=== PATIENT | female | born 1935 | race Caucasian/White ===

== ENCOUNTER 2016-08-10 07:33 | Inpatient (IN) | payer MEDICARE ==
[2016-08-10] MEDS ORDERED: LORAZEPAM 2 MG/ML VIAL IV ONE (08:00)
--- NOTE | 2016-08-10 08:08 | EDPRACDOC ---
- General Information Chief Complaint: Altered Mental Status Stated Complaint: EVALUATION Time Seen by Provider: 08/10/16 08:00 Home Medications: Home Medications Aspirin 81 mg PO DAILY 02/23/16 Atenolol [Tenormin] 50 mg PO BID 02/23/16 Atorvastatin Calcium [Lipitor] 20 mg PO HS 02/23/16 CYANOCOBALAMIN (Vitamin B-12) [Vitamin B-12 (cyanocobalamin)] 1,000 mcg IM .MONTHLY 02/23/16 Clopidogrel Bisulfate [Plavix] 75 mg PO DAILY 02/23/16 Folic Acid 1 mg PO DAILY 02/23/16 Furosemide [Lasix] 40 mg PO BID 02/23/16 Isosorbide Mononitrate [Isosorbide Mononitrate ER] 60 mg PO DAILY 02/23/16 Nitroglycerin [Nitroquick] 0.4 mg SL . DIRECTED PRN 02/23/16 Quinapril HCl 40 mg PO BID 02/23/16 Gabapentin [Neurontin] 100 mg PO QHS 06/24/16 Lactobacillus Combo No.11 [Probiotic] 1 cap PO DAILY 06/24/16 Pantoprazole Sodium [Protonix] 20 mg PO DAILY 06/24/16 Psyllium Husk [Metamucil] 0.52 gm PO BID 06/24/16 Quetiapine Fumarate [Seroquel] 25 mg PO HS 06/24/16 Allergies/Adverse Reactions: Allergies Allergy/AdvReac Type Severity Reaction Status Date / Time codeine [Codeine] Allergy Severe Headache Verified 02/23/16 23:18 Penicillins Allergy Intermediate Rash-Genera Verified 02/23/16 23:18 lized - History of Present Illness Onset: WEEKS Exact Onset of Symptoms: Unknown Date Symptoms Started: 07/20/16 HPI: PATIENT SENT FROM HOME WITH ALTERED MENTAL STATUS. HX OF METABOLIC ENCEPHALOPATHY, CVA, AND DEMENTIA. PATIENT STATES SHE BELIEVES HER IS TRYING TO KILL HER ANIMALS AND CHILDREN. Symptoms began: Gradually Duration: Since Onset Symptoms Currently: Reports: Still Present Altered Quality: Reports: Change in Behavior, Confusion Altered Severity: Reports: Unable to care for self Recent Symptoms of: Reports: None Relevant History: Reports: CVA, Dementia Prehospital: Reports: EMT ED Past Medical History - History Reviewed Yes Nurses notes reviewed and agree except as marked Travel Outside of [place] in the Last 3 Months?: No - Patient Medical History Neurological History: Reports: Cerebrovascular Accident, Dementia Cardiac History: Reports: Coronary Artery Disease, Hypertension, Heart Attack, Cardiac Catheterization, CABG, Hypercholesterolemia Respiratory History: Denies: Asthma, COPD, Cough, Emphysema, Pulmonary Embolism GI/ History: Reports: Renal Failure (ACUTE 09/28/14), Urinary Tract Infection ( 09/28/14), Gastroesophageal Reflux, Ulcer Musculoskeletal History: Reports: Arthritis, Osteoarthritis Psychological History: Reports: Depression, Anxiety. Denies: Bipolar Disorder, Substance Use Disorder Systemic History: Reports: Anemia (Takes B12 injections). Denies: Cancer, Diabetes, Hypothyroidism Surgical History: Reports: CABG, Cardiac Catheterization, Tonsillectomy/ Adnoidectomy, Other (Left knee replacement, PTCA stent to LAD, Exploratory laporatomy) - Family Medical History Reports: Hypertension (Mother and Father), Stroke (Mother: of CVA at 83yo.) , Cardiac Disorders (Mother). Denies: Diabetes, Cancer - Social Medical History Smoking Status: Never smoker Social History: Denies: Substance Use Disorder Lives With: Family Lives In: Home EDM Review of Systems - Review of Systems ROS Negative Except as Marked: Yes All systems reviewed and were negative except as marked Constitutional: Fatigue. negative: Chills, Fever, Loss of Appetite, Weakness Eyes: No Symptoms Reported. negative: Redness, Blurred Vision, Double Vision, Discharge, Pain, Light Sensitive, Photophobia Ears: No Symptoms Reported. negative: Pain, Hearing Loss, Drainage, Ear Pulling Throat: No Symptoms Reported. negative: Pain, Swelling Nose: No Symptoms Reported. negative: Congestion, Bleeding, Discharge, Injection, Swelling, Deformity, Ecchymosis, Tender, Abrasion, Laceration Mouth: No Symptoms Reported. negative: Pain, Drooling Respiratory: No Symptoms Reported. negative: Cough, Brassy Cough, Barky Cough, Shortness of Breath, Wheezing, Hemoptysis Cardiovascular: No Symptoms Reported. negative: Chest Pain, Palpitations, Syncope, Edema, Orthopnea, PND, Skin Mottling, Cyanosis Gastrointestinal: No Symptoms Reported. negative: Pain, Constipation, Nausea, Vomiting, Diarrhea, Melena, Formula Intolerance Genitourinary: No Symptoms Reported. negative: Dysuria, Hematuria, Frequency, Discharge, Bleeding, Testicular Pain, Neurological: No Symptoms Reported. negative: Headache, Dizziness, Seizure, Numbness, Weakness, Speech Difficulty, Gait Difficulty Musculoskeletal: No Symptoms Reported. negative: Neck, Chestwall, Ribs, Back, Shoulder, Arm, Elbow, Forearm, Wrist, Hand, Pelvis, Hip, Femur, Knee, Leg, Ankle , Foot Integumentary: No Symptoms Reported. negative: Itching, Rash, Bruising, Wound Allergic/Immunologic: No Symptoms Reported. negative: Hives, Itching Hematologic: No Symptoms Reported. negative: Lymphadenopathy, Easy Bruising, Easy Bleeding Endocrine: No Symptoms Reported. negative: Weight Gain, Weight Loss Psychiatric: No Symptoms Reported. negative: Anxiety, Depression, Hallucinations, Insomnia, Suicidal - Physical Exam Constitutional: Alert (Awake), Confused Oriented to: Person, Place Last recorded Vital Signs: Oxygen Pulse Oxygen Saturation O2 Device Oxygen Flow Rate Fraction of Inspired Oxygen ( FIO2) - HEENT Head: Normal ( normocephalic) Eye Exam: Normal (PERRL, EOMI, Sclera white) Oropharynx: Normal (Pharynx:Moist without exudate,Gums-no swelling) Tympanic Membrane: Normal ENT EAC: Normal TMJ: Normal Nose: No Symptoms Reported (septum midline) Neck: Normal (FROM, trachea at midline) - Respiratory/Cardiovascular Respiratory: Normal - CTA (BBS clear to auscultation without adventitious sounds ) Cardiovascular: Normal (RRR without murmur, gallop or rub) - GI Auscultation: Normal (NABS) Palpation: Normal (Soft,No rebound or guarding, non distended) Tenderness: Non tender Landry's Sign: Negative - Bladder: Normal - Musculoskeletal Back: Normal (Non-Tender) Extremities: Normal (Normal tone, Pulses 2+ No cyanosis or edema, FROM) - Integumentary Skin: Normal, Warm, Dry Lymphatics: Normal (no adenopathy) - Neurologic Memory Impaired: Normal Motor Function: Normal (Normal tone, Pulses 2+ No cyanosis or edema, FROM) Cranial Nerve: Normal (CN II-X11 intact sensation, strength 5/5) Cerebellar: Normal Mood Description: Anxious Thought: Flight of Ideas Perception: Normal - Results 08/10/16 08:25 08/10/16 08:25 - EKG EKG #1 EKG Time: 08:39 -: Yes EKG interpreted by me Rate: bpm: 50 [place]: Normal Rhythm: NSR Block: IVCD Hypertrophy: LVH ST: Normal - Departure Yes I personally saw and evaluated the patient. Disposition: Admit IP To This Hospital Condition: Fair Final Diagnosis: Dehydration Altered mental status Qualifiers: Altered mental status type: delirium Qualified Code(s): R41.0 - Disorientation , unspecified UTI (urinary tract infection) Qualifiers: Urinary tract infection type: acute cystitis Hematuria presence: without hematuria Qualified Code(s): N30.00 - Acute cystitis without hematuria Instructions: Urinary Tract Infection in Women (ED), Dysuria Education/Counseling Given To: Patient Education/Counseling Given Regarding: Diagnosis, Treatment, Prognosis, Follow Up Decision to Admit Time: 09:30 Decision to admit date: 08/10/16 Decision to admit: from ED - Physician Consulted Hospitalist Time Called: 09:30 Provider Called: Babar Meyers Time Library Serials Assistant Returned Call: 09:30
[2016-08-10 08:48] LABS: BLOOD UREA NITROGEN 27 MG/DL (7-17); CALCIUM 8.7 MG/DL (8.4-10.2); CALCULATED OSMOLALITY 280 MOs/Kg (270-290); CHLORIDE 107 mEq/L (98-107); GLUCOSE 99 MG/DL (70-99); SODIUM LEVEL 143 mEq/L (137-146); TOTAL PROTEIN 7.1 G/DL (6.3-8.2)
[2016-08-10 08:52] LABS: AUTOMATED BASOPHIL 1.2 % (0-2); AUTOMATED EOSINOPHIL 4.5 % (0-5); AUTOMATED LYMPH 32.9 % (17-44); AUTOMATED NEUTROPHIL 51.4 % (45-76); MPV 11.3 fL (7.4-10.4)
[2016-08-10 09:02] LABS: PARTIAL THROMB. TIME 23.8 SEC (22-35); PT-INR 1.1
--- NOTE | 2016-08-10 09:10 | DIRPT ---
CLINICAL DATA: 81-year-old female with shortness breath and altered mental status. EXAM: PORTABLE CHEST 1 VIEW COMPARISON: 06/24/2016 and prior exams FINDINGS: Cardiomegaly and CABG changes identified. There is no evidence of focal airspace disease, pulmonary edema, suspicious pulmonary nodule/mass, pleural effusion, or pneumothorax. No acute bony abnormalities are identified. IMPRESSION: Cardiomegaly without evidence of acute cardiopulmonary disease. Electronically Signed By: Angel Jett M.D. On: 08/10/2016 09:08
--- NOTE | 2016-08-10 09:16 | DIRPT ---
CLINICAL DATA: 81-year-old female with acute altered mental status. EXAM: CT HEAD WITHOUT CONTRAST TECHNIQUE: Contiguous axial images were obtained from the base of the skull through the vertex without intravenous contrast. COMPARISON: 02/23/2016 and prior exams. FINDINGS: Atrophy, chronic small-vessel white matter ischemic changes and remote right [id number] infarct again noted. No acute intracranial abnormalities are identified, including mass lesion or mass effect, hydrocephalus, extra-axial fluid collection, midline shift, hemorrhage, or acute infarction. The visualized bony calvarium is unremarkable. IMPRESSION: No evidence of acute intracranial abnormality. Atrophy, chronic small-vessel white mentioned ischemic changes remote right cerebral infarct. Electronically Signed By: Angel Jett M.D. On: 08/10/2016 09:13
[2016-08-10 09:18] LABS: ALL NEG? YES; MDMA* NEG (NEGATIVE); METHAMPHETAMINES NEG (NEGATIVE); OXYCODONE NEG (NEGATIVE)
[2016-08-10 09:19] LABS: LEUKOCYTES/URINE 2+ (NEGATIVE); NITRITE/URINE NEG (NEGATIVE); URINE OCCULT BLOOD 1+ (NEG/TRACE); WBC/URINE TNTC (0-5)
[2016-08-10] MEDS ORDERED: Levofloxacin 750 mg/150 ml D5W 750 MG/150 ML RTU IV ONE (09:29)
[2016-08-10] MEDS ORDERED: NS 1,000 ML IV ONE (09:29)
[2016-08-10 09:30] LABS: ETOH-MGDL < 10 mg/dL
[2016-08-10] MEDS ORDERED: MAGNESIUM HYDROXIDE 30 ML BOTTLE PO PRN (11:05)
[2016-08-10] MEDS ORDERED: ACETAMINOPHEN 325 MG/TAB TABLET PO PRN (11:05)
[2016-08-10] MEDS ORDERED: Docusate Sodium 100 MG CAP PO PRN (11:05)
[2016-08-10] MEDS ORDERED: ONDANSETRON HCL 4 MG/2 ML VIAL IV PRN (11:05)
--- NOTE | 2016-08-10 11:05 | HISTPHYS ---
- Chief Complaint altered mental status - History of Present Illness Ms. Pimentel is an 81-year-old white female with a history of metabolic encephalopathy, stroke and dementia who was sent to the emergency room with worsening mental status and paranoid delusions. She has apparently been stating that she thinks her is trying to killer. Per the emergency rooms discussion with family she apparently gets this way when she gets urinary tract infections. And unfortunately she does have a UTI. She also appears moderately dehydrated and will be admitted to the hospital for further evaluation and management of metabolic encephalopathy, urinary tract infection, and dehydration. She is unable to provide any other history at this time. - Medical History Cardiac History: Reports: Coronary Artery Disease, Hypertension, Heart Attack, Cardiac Catheterization, CABG, Hypercholesterolemia Respiratory History: Denies: Asthma, COPD, Cough, Emphysema, Pulmonary Embolism GI/ History: Reports: Renal Failure (ACUTE 09/28/14), Urinary Tract Infection ( 09/28/14), Gastroesophageal Reflux, Ulcer Musculoskeletal History: Reports: Arthritis, Osteoarthritis Systemic History: Reports: Anemia (Takes B12 injections). Denies: Cancer, Diabetes, Hypothyroidism Neurological History: Reports: Cerebrovascular Accident, Dementia Psychological History: Reports: Depression, Anxiety. Denies: Bipolar Disorder, Substance Use Disorder - Surgical History Reports: CABG, Cardiac Catheterization, Tonsillectomy/Adnoidectomy, Other (Left knee replacement, PTCA stent to LAD, Exploratory laporatomy) - Medictions/Allergies Allergies codeine [Codeine] Allergy (Severe, Verified 08/10/16 10:27) Headache SEVERE HEADACHE Penicillins Allergy (Intermediate, Verified 08/10/16 10:27) Rash-Generalized Home Medications Aspirin 81 mg PO DAILY 02/23/16 Atenolol [Tenormin] 50 mg PO BID 02/23/16 Atorvastatin Calcium [Lipitor] 20 mg PO HS 02/23/16 CYANOCOBALAMIN (Vitamin B-12) [Vitamin B-12 (cyanocobalamin)] 1,000 mcg IM .MONTHLY 02/23/16 Clopidogrel Bisulfate [Plavix] 75 mg PO DAILY 02/23/16 Folic Acid 1 mg PO DAILY 02/23/16 Furosemide [Lasix] 40 mg PO BID 02/23/16 Isosorbide Mononitrate [Isosorbide Mononitrate ER] 60 mg PO DAILY 02/23/16 Nitroglycerin [Nitroquick] 0.4 mg SL . DIRECTED PRN 02/23/16 Quinapril HCl 40 mg PO BID 02/23/16 Gabapentin [Neurontin] 100 mg PO QHS 06/24/16 Lactobacillus Combo No.11 [Probiotic] 1 cap PO DAILY 06/24/16 Pantoprazole Sodium [Protonix] 20 mg PO DAILY 06/24/16 Psyllium Husk [Metamucil] 0.52 gm PO BID 06/24/16 Quetiapine Fumarate [Seroquel] 25 mg PO HS 06/24/16 - Family History Reports: Hypertension (Mother and Father), Stroke (Mother: of CVA at 83yo.) , Cardiac Disorders (Mother). Denies: Diabetes, Cancer - Social History Lives: with Spouse Smoking Status: Never smoker Social History: Denies: Alcohol Use, Substance Use Disorder - Review of Systems Yes Review of systems cannot be obtained due to the patient's medical condition (Dementia with worsening mental status) Constitutional: Fatigue. negative: Chills, Fever, Loss of Appetite, Weakness - Physical Exam Constitutional: Alert (Awake), Confused, Well nourished, Well appearing Oriented to: Person Exam: Last Vital Signs Temp 97.6 F 08/10/16 07:33 Pulse 52 L 08/10/16 10:50 Resp 18 08/10/16 10:30 BP 146/72 08/10/16 10:50 Pulse Ox 99 08/10/16 10:50 Intake & Output 08/09/16 08/10/16 08/10/16 23:59 07:59 15:59 Output Total 50 Balance -50 Patient's weight 68.765 kg - HEENT Head: Normal ( normocephalic) Eye: Normal (PERRL, EOMI, Sclera white) Oropharynx: Normal (Pharynx:Moist without exudate,Gums-no swelling) Tympanic Membrane: Normal ENT EAC: Normal TMJ: Normal Nose: No Symptoms Reported (septum midline) - Respiratory/Cardiovascular Respiratory: Normal - CTA (BBS clear to auscultation without adventitious sounds ) Cardiovascular: Normal - GI Auscultation: Normal (NABS) Palpation: Normal (Soft,No rebound or guarding, non distended) Tenderness: Non tender - Musculoskeletal Back: Normal (Non-Tender). negative: Abrasion Extremities: Normal (Normal tone, Pulses 2+ No cyanosis or edema, FROM), Femoral Pulse, Pedal Pulse. negative: Calf Tenderness - Integumentary Skin: Normal, Warm, Dry Lymphatics: Normal (no adenopathy). negative: Adenopathy - Neurologic Memory Impaired: Short-term, Long-term Motor Function: Normal Cranial Nerve: Normal Cerebellar: Normal Mood Description: Anxious Thought: Flight of Ideas Perception: Normal - Focused CV Perfusion Exam Vital Signs: Last Vital Signs Temp 97.6 F 08/10/16 07:33 Pulse 52 L 08/10/16 10:50 Resp 18 08/10/16 10:30 BP 146/72 08/10/16 10:50 Pulse Ox 99 08/10/16 10:50 - Lab Results Laboratory Results - last 24 hr 08/10/16 08/10/16 08/10/16 08:25 08:25 08:25 WBC 4.7 RBC 3.26 L Hgb 10.8 L Hct 32.2 L MCV 99 MCH 33.0 H MCHC 33.5 RDW 15.7 H Plt Count 119 L MPV 11.3 H Neut % (Auto) 51.4 Lymph % (Auto) 32.9 [place] % (Auto) 10.0 Eos % (Auto) 4.5 Baso % (Auto) 1.2 Absolute Neuts (auto) 2.40 Absolute Lymphs (auto) 1.50 PT 10.9 INR 1.1 APTT 23.8 Sodium 143 Potassium 3.3 L Chloride 107 Carbon Dioxide 26 Anion Gap 13 BUN 27 H Creatinine 1.10 H Estimated GFR (MDRD) 48 L Glucose 99 Calculated Osmolality 280 Calcium 8.7 Total Bilirubin 0.7 AST 28 ALT 31 Alkaline Phosphatase 105 Troponin I < 0.01 Total Protein 7.1 Albumin 4.6 Urine Color Urine Clarity Urine pH Ur Specific [place] Urine Protein Urine Glucose (UA) Urine Ketones Urine Occult Blood Urine Nitrite Urine Bilirubin Urine Urobilinogen Ur Leukocyte Esterase Urine RBC Urine WBC Urine WBC Clumps Ur Epithelial Cells Urine Bacteria Urine Opiates Screen Ur Oxycodone Screen Urine Methadone Screen Ur Barbiturates Screen Ur Tricyclics Screen Ur Phencyclidine Scrn Ur Amphetamines Screen U Methamphetamines Scrn Urine MDMA Screen U Benzodiazepines Scrn Urine Cocaine Screen Ur THC Screen Plasma/Serum Ethyl Alc 08/10/16 08/10/16 08/10/16 08:25 09:05 09:05 WBC RBC Hgb Hct MCV MCH MCHC RDW Plt Count MPV Neut % (Auto) Lymph % (Auto) [place] % (Auto) Eos % (Auto) Baso % (Auto) Absolute Neuts (auto) Absolute Lymphs (auto) PT INR APTT Sodium Potassium Chloride Carbon Dioxide Anion Gap BUN Creatinine Estimated GFR (MDRD) Glucose Calculated Osmolality Calcium Total Bilirubin AST ALT Alkaline Phosphatase Troponin I Total Protein Albumin Urine Color Yellow Urine Clarity Cldy Urine pH 6.0 Ur Specific [place] 1.010 Urine Protein 1+ H Urine Glucose (UA) Neg Urine Ketones Neg Urine Occult Blood 1+ H Urine Nitrite Neg Urine Bilirubin Neg Urine Urobilinogen <2.0 Ur Leukocyte Esterase 2+ H Urine RBC 2-5 Urine WBC Tntc H Urine WBC Clumps Present H Ur Epithelial Cells 3+ Urine Bacteria 3+ H Urine Opiates Screen Neg Ur Oxycodone Screen Neg Urine Methadone Screen Neg Ur Barbiturates Screen Neg Ur Tricyclics Screen Neg Ur Phencyclidine Scrn Neg Ur Amphetamines Screen Neg U Methamphetamines Scrn Neg Urine MDMA Screen Neg U Benzodiazepines Scrn Neg Urine Cocaine Screen Neg Ur THC Screen Neg Plasma/Serum Ethyl Alc - Assessment (1) Metabolic encephalopathy G93.41 - METABOLIC ENCEPHALOPATHY Acute Present on Admission: Yes Baseline cognitive dysfunction. However this is acutely exacerbated likely by dehydration and urinary tract infection. Will admit to the hospital. IV fluids and IV antibiotics. Will use Rocephin based on cultures from last hospitalization in early June. (2) UTI (urinary tract infection) N39.0 - URINARY TRACT INFECTION, SITE NOT SPECIFIED Acute Present on Admission: Yes Qualifiers: Urinary tract infection type: acute cystitis Hematuria presence: without hematuria Qualified Code(s): N30.00 - Acute cystitis without hematuria Relatively stable appearing but very confused and disoriented. Clearly has UTI and worsening cognitive function. Will use IV Rocephin based on previous cultures in June. Adjust therapy pending new culture results (3) Dehydration E86.0 - DEHYDRATION Acute Present on Admission: Yes IV fluids and monitor. (4) Hyperlipidemia E78.5 - HYPERLIPIDEMIA, UNSPECIFIED Chronic Present on Admission: Yes Qualifiers: Hyperlipidemia type: pure hypercholesterolemia Qualified Code(s): E78.00 - Pure hypercholesterolemia, unspecified; E78.0 - Pure hypercholesterolemia Continue current medications (5) Hypertension I10 - ESSENTIAL (PRIMARY) HYPERTENSION Chronic Present on Admission: Yes Qualifiers: Hypertension type: essential hypertension Qualified Code(s): I10 - Essential (primary) hypertension Continue home medications and monitor. (6) Stasis dermatitis of both legs I83.11 - VARICOSE VEINS OF RIGHT LOWER EXTREMITY WITH INFLAMMATION; I83.12 - VARICOSE VEINS OF LEFT LOWER EXTREMITY WITH INFLAMMATION Acute Present on Admission: Yes Supportive care. Likely needs compression stockings Case Care Discussed with: Patient, Nursing Staff, Resource Management
[2016-08-10] MEDS ORDERED: CYANOCOBALAMIN 1000 MCG/ML VIAL IM SCH (12:00)
[2016-08-10] MEDS: PROBIOTIC BLEND TAB PO SCH (12:18)
[2016-08-10] MEDS: CEFTRIAXONE 1 GM in D5W 100 ML IV SCH (12:18)
[2016-08-10] MEDS: NS/KCl 20 mEq 1,000 ML IV SCH ×3 (12:18→21:44)
[2016-08-10] MEDS ORDERED: Vaccine Screening Complete SCH (13:00)
[2016-08-10] MEDS: ENOXAPARIN 40 MG/0.4 ML PFS SQ SCH (18:53)
[2016-08-10] MEDS ORDERED: PSYLLIUM HUSK 0.52 GM PO SCH (21:00)
[2016-08-10] MEDS: ATORVASTATIN 20 MG TAB PO SCH (22:30)
[2016-08-10] MEDS: GABAPENTIN 100 MG CAP PO SCH (22:30)
[2016-08-10] MEDS: QUETIAPINE FUMARATE 25 MG TAB PO SCH (22:30)
[2016-08-10] MEDS: PSYLLIUM 1 PACK PO SCH (22:30)
[2016-08-11] MEDS: ATENOLOL 50 MG TAB PO SCH ×3 (01:15→21:24)
[2016-08-11] MEDS: NS/KCl 20 mEq 1,000 ML IV SCH ×4 (02:45→21:26)
[2016-08-11] MEDS: PANTOPRAZOLE 40 MG TAB PO SCH (05:16)
[2016-08-11] MEDS: ISOSORBIDE MONONITRATE 60 MG TAB PO SCH (05:16)
[2016-08-11 05:30] LABS: AUTOMATED EOSINOPHIL 3.9 % (0-5); AUTOMATED LYMPH 31.7 % (17-44); AUTOMATED MONOCYTE 11.8 % (3-10); AUTOMATED NEUTROPHIL 51.6 % (45-76); MPV 11.9 fL (7.4-10.4)
[2016-08-11 05:38] LABS: BLOOD UREA NITROGEN 24 MG/DL (7-17); CHLORIDE 111 mEq/L (98-107); GLUCOSE 103 MG/DL (70-99); SODIUM LEVEL 144 mEq/L (137-146)
[2016-08-11 05:39] LABS: CALCIUM 8.2 MG/DL (8.4-10.2); CALCULATED OSMOLALITY 281 MOs/Kg (270-290)
[2016-08-11] MEDS: PSYLLIUM 1 PACK PO SCH ×2 (07:53→21:24)
[2016-08-11] MEDS: CLOPIDOGREL 75 MG TAB PO SCH (07:55)
[2016-08-11] MEDS: ASPIRIN (CHEWABLE) 81 MG TAB PO SCH (07:55)
[2016-08-11] MEDS ORDERED: PANTOPRAZOLE SODIUM 20 MG PO SCH (09:00)
[2016-08-11] MEDS ORDERED: [UNRECOGNIZED DRUG - OTHER] PO SCH (09:00)
[2016-08-11] MEDS: FOLIC ACID 1 MG TAB PO SCH (11:40)
[2016-08-11] MEDS: PROBIOTIC BLEND TAB PO SCH (11:40)
[2016-08-11] MEDS: CEFTRIAXONE 1 GM in D5W 100 ML IV SCH (11:40)
--- NOTE | 2016-08-11 13:48 | GENMEDPROG ---
Chief Complaint: Still very confused. Much more alert and interactive however. Denies pain. Notes Reviewed: Yes Events from last night noted and discussed with Clinical Staff Current Medication List: Reviewed Currently: Denies: Cough, Wheezing, CUMMINGS, SOB, Nausea and Vomiting, Abdominal Pain, Chest Pain DVT Prophylaxis: Yes - Physical Examination Vital Signs and I&O: Last Vital Signs Temp 98.4 F 08/11/16 11:29 Pulse 58 L 08/11/16 12:00 Resp 18 08/11/16 11:29 BP 133/61 08/11/16 11:29 Pulse Ox 97 08/11/16 11:29 Oxygen Pulse Oxygen Saturation 97 O2 Device Room Air Oxygen Flow Rate Fraction of Inspired Oxygen ( FIO2) Intake & Output 08/08/16 08/09/16 08/10/16 08/11/16 23:59 23:59 23:59 23:59 Intake Total 1950 1855 Output Total 250 Balance 1950 1605 Patient's weight 68.583 kg 69.853 kg General: Alert, Cooperative, No acute distress, Well appearing, Well nourished. negative: Oriented x3 HEENT: Normal, PERRLA, EOMI, Anicteric Sclera Neck: Non-tender, Full range of motion, Normal Trachea alignment, Normal inspection. negative: JVD Lymphatics: Normal (no adenopathy). negative: Adenopathy Respiratory: Normal - CTA (BBS clear to auscultation without adventitious sounds ) Cardiovascular: Regular rate and rhythm, No Gallops,Rubs/Murmurs GI: Normal bowel sounds, Soft, Non tender, No hepatospenomegaly Extremities/Musculoskeletal: Normal pulses. negative: Tenderness, Swelling, Edema Skin: Warm,Dry and Intact, No rashes, No breakdown, No significant lesion Neurological: Normal speech, Strength at 5/5 X4 ext, Normal tone, Cranial nerves 3-12 NL Psych/Mental Status: Confused Lab/DI/Studies Reviewed: Laboratory Results - last 24 hr 08/10/16 08/11/16 08/11/16 14:27 04:30 04:30 WBC 4.6 RBC 2.77 L Hgb 9.2 L D Hct 27.4 L MCV 99 MCH 33.2 H MCHC 33.6 RDW 16.1 H Plt Count 110 L MPV 11.9 H Neut % (Auto) 51.6 Lymph % (Auto) 31.7 [place] % (Auto) 11.8 H Eos % (Auto) 3.9 Baso % (Auto) 1.0 Absolute Neuts (auto) 2.35 Absolute Lymphs (auto) 1.43 Sodium 144 Potassium 4.0 Chloride 111 H Carbon Dioxide 24 Anion Gap 13 BUN 24 H Creatinine 1.30 H Estimated GFR (MDRD) 39 L Glucose 103 H Calculated Osmolality 281 Calcium 8.2 L Troponin I 0.01 - Assessment (1) Metabolic encephalopathy Acute G93.41 - METABOLIC ENCEPHALOPATHY Comment/Plan: Still very confused and disoriented. More alert and interactive however. Continue IV Rocephin. Cultures pending. IV fluids and supportive care. (2) UTI (urinary tract infection) Acute N39.0 - URINARY TRACT INFECTION, SITE NOT SPECIFIED Qualifiers: Urinary tract infection type: acute cystitis Hematuria presence: without hematuria Qualified Code(s): N30.00 - Acute cystitis without hematuria Comment/Plan: Using IV Rocephin based on previous cultures in June. Adjust therapy pending new culture results (3) Dehydration Acute E86.0 - DEHYDRATION Comment/Plan: IV fluids and monitor. (4) Hyperlipidemia Chronic E78.5 - HYPERLIPIDEMIA, UNSPECIFIED Qualifiers: Hyperlipidemia type: pure hypercholesterolemia Qualified Code(s): E78.00 - Pure hypercholesterolemia, unspecified; E78.0 - Pure hypercholesterolemia Comment/Plan: Continue current medications (5) Hypertension Chronic I10 - ESSENTIAL (PRIMARY) HYPERTENSION Qualifiers: Hypertension type: essential hypertension Qualified Code(s): I10 - Essential (primary) hypertension Comment/Plan: Continue home medications and monitor. (6) Stasis dermatitis of both legs Acute I83.11 - VARICOSE VEINS OF RIGHT LOWER EXTREMITY WITH INFLAMMATION; I83.12 - VARICOSE VEINS OF LEFT LOWER EXTREMITY WITH INFLAMMATION Comment/Plan : Supportive care. Likely needs compression stockings Case Care Discussed with: Patient, Nursing Staff, Physical Therapy, Resource Management, Respiratory Therapy, Field Gauger
[2016-08-11] MEDS: ENOXAPARIN 40 MG/0.4 ML PFS SQ SCH (17:16)
[2016-08-11] MEDS: ATORVASTATIN 20 MG TAB PO SCH (21:24)
[2016-08-11] MEDS: GABAPENTIN 100 MG CAP PO SCH (21:24)
[2016-08-11] MEDS: QUETIAPINE FUMARATE 25 MG TAB PO SCH (21:24)
[2016-08-12] MEDS: NS/KCl 20 mEq 1,000 ML IV SCH ×5 (01:21→22:21)
[2016-08-12 04:49] VITALS: BMI 23.6
[2016-08-12] MEDS: PANTOPRAZOLE 40 MG TAB PO SCH (04:51)
[2016-08-12] MEDS: ISOSORBIDE MONONITRATE 60 MG TAB PO SCH (04:51)
[2016-08-12 05:35] LABS: AUTOMATED BASOPHIL 1.7 % (0-2); AUTOMATED EOSINOPHIL 8.6 % (0-5); AUTOMATED LYMPH 36.6 % (17-44); AUTOMATED MONOCYTE 11.4 % (3-10); AUTOMATED NEUTROPHIL 41.7 % (45-76); MPV 11.2 fL (7.4-10.4)
[2016-08-12 05:51] LABS: BLOOD UREA NITROGEN 20 MG/DL (7-17); CALCIUM 8.6 MG/DL (8.4-10.2); CALCULATED OSMOLALITY 276 MOs/Kg (270-290); CHLORIDE 112 mEq/L (98-107); GLUCOSE 97 MG/DL (70-99); SODIUM LEVEL 142 mEq/L (137-146)
[2016-08-12] MEDS: CLOPIDOGREL 75 MG TAB PO SCH (10:36)
[2016-08-12] MEDS: ASPIRIN (CHEWABLE) 81 MG TAB PO SCH (10:36)
[2016-08-12] MEDS: ATENOLOL 50 MG TAB PO SCH ×2 (10:36→20:28)
[2016-08-12] MEDS: PSYLLIUM 1 PACK PO SCH ×2 (10:37→20:28)
--- NOTE | 2016-08-12 11:07 | GENMEDPROG ---
Subjective Note: Patient in bed, confused and disoriented. Alert and able to follow commands. More interactive today. P.o. intake better. Reports occasional joint pain. Notes Reviewed: Yes Events from last night noted and discussed with Clinical Staff Current Medication List: Reviewed Currently: Reports: Reflux Sx. Denies: Cough, Wheezing, CUMMINGS, SOB, Nausea and Vomiting, Abdominal Pain, Chest Pain DVT Prophylaxis: Yes - Physical Examination Vital Signs and I&O: Last Vital Signs Temp 97.5 F 08/12/16 07:37 Pulse 57 L 08/12/16 10:00 Resp 20 08/12/16 07:37 BP 162/73 08/12/16 07:37 Pulse Ox 97 08/12/16 08:00 Oxygen Pulse Oxygen Saturation 97 O2 Device Room Air Oxygen Flow Rate Fraction of Inspired Oxygen ( FIO2) Intake & Output 08/09/16 08/10/16 08/11/16 08/12/16 23:59 23:59 23:59 23:59 Intake Total 1950 3751 1370 Output Total 250 Balance 1950 3501 1370 Patient's weight 68.583 kg 69.853 kg 72.62 kg General: Alert, Cooperative, No acute distress, Well appearing, Well nourished. negative: Oriented x3 HEENT: Normal, PERRLA, EOMI, Anicteric Sclera Neck: Non-tender, Full range of motion, Normal Trachea alignment, Normal inspection, Limited range of motion. negative: JVD Lymphatics: Normal (no adenopathy). negative: Adenopathy Respiratory: Normal - CTA (BBS clear to auscultation without adventitious sounds ), Diminished, Rhonchi Cardiovascular: Regular rate and rhythm, Normal S1, No Gallops,Rubs/Murmurs, Normal S2, Murmurs GI: Normal bowel sounds, Soft, Non tender, No hepatospenomegaly, No masses Extremities/Musculoskeletal: Normal pulses. negative: Tenderness, Swelling, Edema Skin: Warm,Dry and Intact, No rashes, No breakdown, No significant lesion Neurological: Normal speech, Strength at 5/5 X4 ext, Normal tone, Cranial nerves 3-12 NL Psych/Mental Status: Anxious, Confused - Assessment (1) Metabolic encephalopathy Acute G93.41 - METABOLIC ENCEPHALOPATHY Comment/Plan: Continue supportive care. Avoid anticholinergics, minimize sedation. (2) Dehydration Acute E86.0 - DEHYDRATION Comment/Plan: Continue IV fluids at lower rate. (3) UTI (urinary tract infection) Acute N39.0 - URINARY TRACT INFECTION, SITE NOT SPECIFIED Qualifiers: Urinary tract infection type: acute cystitis Hematuria presence: without hematuria Qualified Code(s): N30.00 - Acute cystitis without hematuria Comment/Plan: Urine culture growing 2 g negative rods. Continue IV antibiotics await final report (4) Dementia Acute F03.90 - UNSPECIFIED DEMENTIA WITHOUT BEHAVIORAL DISTURBANCE Qualifiers: Dementia type: Alzheimer's disease Dementia behavioral disturbance: without behavioral disturbance Comment/Plan: Continue supportive care (5) Anemia Chronic D64.9 - ANEMIA, UNSPECIFIED Qualifiers: Vitamin B12 deficiency anemia type: other B12 deficiency Comment/Plan: Monitor counts. Overall stable (6) CAD (coronary artery disease) Chronic I25.10 - ATHSCL HEART DISEASE OF [place] CORONARY ARTERY W/O ANG PCTRS Qualifiers: Coronary Disease-Associated Artery/Lesion type: [place] artery Associated angina: without angina Comment/Plan: Stable on medical therapy. At very low activity level (7) Hyperlipidemia Chronic E78.5 - HYPERLIPIDEMIA, UNSPECIFIED Qualifiers: Hyperlipidemia type: pure hypercholesterolemia Qualified Code(s): E78.00 - Pure hypercholesterolemia, unspecified; E78.0 - Pure hypercholesterolemia Comment/Plan: Continue current medications (8) Hypertension Chronic I10 - ESSENTIAL (PRIMARY) HYPERTENSION Qualifiers: Hypertension type: essential hypertension Qualified Code(s): I10 - Essential (primary) hypertension Comment/Plan: Continue home medications and monitor. Case Care Discussed with: Patient, Family, Nursing Staff, Respiratory Therapy, Prosthetic Lab Technician Education/Counseling Given To: Patient Education/Counseling Given Regarding: Diagnosis, Treatment, Prognosis, Follow Up Total Time: 50 min . Critical Care: No Code: 51157 (12+)
[2016-08-12] MEDS ORDERED: LORAZEPAM 2 MG/ML VIAL ONE (14:31)
[2016-08-12] MEDS: LORAZEPAM 2 MG/ML VIAL IV PRN ×2 (14:56→22:20)
[2016-08-12] MEDS: PROBIOTIC BLEND TAB PO SCH (14:57)
[2016-08-12] MEDS: FOLIC ACID 1 MG TAB PO SCH (14:57)
[2016-08-12] MEDS: CEFTRIAXONE 1 GM in D5W 100 ML IV SCH (15:01)
[2016-08-12] MEDS: ENOXAPARIN 40 MG/0.4 ML PFS SQ SCH (17:57)
[2016-08-12] MEDS: QUETIAPINE FUMARATE 25 MG TAB PO SCH (20:28)
[2016-08-12] MEDS: ATORVASTATIN 20 MG TAB PO SCH (20:28)
[2016-08-12] MEDS: GABAPENTIN 100 MG CAP PO SCH (20:28)
[2016-08-13] MEDS: NS/KCl 20 mEq 1,000 ML IV SCH ×2 (04:56→11:44)
[2016-08-13] MEDS: PANTOPRAZOLE 40 MG TAB PO SCH (04:56)
[2016-08-13] MEDS: ISOSORBIDE MONONITRATE 60 MG TAB PO SCH (04:56)
[2016-08-13 06:34] VITALS: TEMP 98.8
[2016-08-13] MEDS: ASPIRIN (CHEWABLE) 81 MG TAB PO SCH (08:42)
[2016-08-13] MEDS: PSYLLIUM 1 PACK PO SCH (08:42)
[2016-08-13] MEDS: CLOPIDOGREL 75 MG TAB PO SCH (08:42)
[2016-08-13 08:47] VITALS: BP 178/88; PULSE 55
[2016-08-13] MEDS: ATENOLOL 50 MG TAB PO SCH (08:47)
[2016-08-13] MEDS: FOLIC ACID 1 MG TAB PO SCH (11:44)
[2016-08-13] MEDS: PROBIOTIC BLEND TAB PO SCH (11:44)
[2016-08-13] MEDS: CEFTRIAXONE 1 GM in D5W 100 ML IV SCH (11:44)
--- NOTE | 2016-08-13 12:43 | PCM.DCS92 ---
- Final/Secondary Discharge Diagnosis (1) Metabolic encephalopathy Resolved G93.41 - METABOLIC ENCEPHALOPATHY Present on Admission: Yes Comment: Resolved. Patient much more alert awake responsive and interactive. (2) Dehydration Resolved E86.0 - DEHYDRATION Present on Admission: Yes Comment: Discontinue IV fluids at lower rate. (3) UTI (urinary tract infection) Acute N39.0 - URINARY TRACT INFECTION, SITE NOT SPECIFIED Present on Admission: Yes acute cystitis without hematuria N30.00 - Acute cystitis without hematuria Comment: Urine culture growing pro T was and Klebsiella both susceptible to Rocephin .Continue and finish 3 more days of IV Rocephin (4) Dementia Chronic F03.90 - UNSPECIFIED DEMENTIA WITHOUT BEHAVIORAL DISTURBANCE Present on Admission: Yes Alzheimer's disease without behavioral disturbance Comment: Continue supportive care (5) Anemia Chronic D64.9 - ANEMIA, UNSPECIFIED Present on Admission: Yes other B12 deficiency Comment: Monitor counts. Overall stable (6) CAD (coronary artery disease) Chronic I25.10 - ATHSCL HEART DISEASE OF [place] CORONARY ARTERY W/O ANG PCTRS [place] artery without angina Comment: Stable on medical therapy at very low activity level (7) Hyperlipidemia Chronic E78.5 - HYPERLIPIDEMIA, UNSPECIFIED Present on Admission: Yes pure hypercholesterolemia E78.00 - Pure hypercholesterolemia, unspecified; E78.0 - Pure hypercholesterolemia Comment: Continue current medications (8) Hypertension Chronic I10 - ESSENTIAL (PRIMARY) HYPERTENSION Present on Admission: Yes essential hypertension I10 - Essential (primary) hypertension Comment: Continue home medications and monitor. Discharge Disposition: Discharge w/ Home Health Discharge Condition: Improved Cognitive Discharge Status: Altered Mental Status Fuctional Discharge Status: Walker Assistance Physician Follow up/Referrals: Rey Gagnon MD [Primary Care Provider] - One Week New Prescriptions: Probiotic Blend [Monika Q] 1 each PO DAILY #60 tab Calcium Carbonate + Vitamin D [Oscal with Vitamin D] 500 mg PO BID #60 tab Ceftriaxone [Rocephin] 1 gm IM Q24H #3 vial O2 Device: Room Air Diet at Discharge: Cardiac, Heart Healthy, Low Salt, High Fiber Activity: As Tolerated Call Office For: Worsening Symptoms, Fever over 101 F Discontinue use of:: Alcohol, All Illegal Substances, All Types of Tobacco - DC Summary Notes Hospital Course Note:: Discharge summary on patient named CHERELLE SEN admitted to [facility] on 08/10/16 by Babar Meyers MD. Date of discharge is []. 81 years old white female presented emergency room on August 10 for evaluation of confusion disorientation confabulations and paranoid delusions.According to family patient has become progressively worse over 3 days prior to this presentation. Her appetite and p.o. intake have declined she is being weak fatigued and very tired. Please refer the admission for further details. ED workup was undertaken patient was found to have pyuria with too numerous to count white cells and +3 bacteria . Patient is admitted to general medical floor treatment of IV fluids and IV antibiotic in the form Rocephin was instituted. Urine culture grew 2 gram-negative rods in the form of pro T was and Klebsiella both susceptible to Rocephin. Treatment with IV Rocephin was continued, outpatient regimen for chronic medical conditions was continued. Her mentation has slowly improved and returned to baseline. By the time of discharge patient was fully alert responsive and interactive. Was no behavior problems related to underlying dementia during hospital stay; no anger agitation or hostility. Outpatient regimen for chronic medical conditions was continued and during hospital stay patient has remained hemodynamically stable. She was seen evaluated by PT OT and due to significant deconditioning, problems with gait balance and transfers skilled therapy was indicated. It was felt that by August 13 patient has reached maximum benefit of inpatient therapy and in clinically stable improved condition she has been discharged [facility] for PT OT as a likely transition to long-term care.. Total Time: 40 min. Code: 33764 (>30min.) - Physical Exam Vital Signs: Last Vital Signs Temp 98.8 F 08/13/16 04:00 Pulse 55 L 08/13/16 08:46 Resp 18 08/13/16 04:00 BP 178/88 08/13/16 08:46 Pulse Ox 97 08/13/16 07:39 Oxygen Pulse Oxygen Saturation 97 O2 Device Room Air Oxygen Flow Rate Fraction of Inspired Oxygen ( FIO2) Constitutional: No apparent distress, Alert (Awake), Well nourished, Well appearing Oriented to: Person, Place - HEENT Head: Normal ( normocephalic) Eye: Normal (PERRL, EOMI, Sclera white) Oropharynx: Normal (Pharynx:Moist without exudate,Gums-no swelling) Tympanic Membrane: Normal ENT EAC: Normal TMJ: Normal Nose: No Symptoms Reported (septum midline) - Respiratory/Cardiovascular Respiratory: Normal - CTA (BBS clear to auscultation without adventitious sounds ), Diminished, Rhonchi Cardiovascular: Normal, Systolic murmur - GI Auscultation: Normal (NABS) Palpation: Normal (Soft,No rebound or guarding, non distended) Tenderness: Non tender Landry's Sign: Negative Rectal Exam: Deferred - Exam Deferred: Yes - Musculoskeletal Back: Normal (Non-Tender). negative: Abrasion Extremities: Normal (Normal tone, Pulses 2+ No cyanosis or edema, FROM), Edema, Femoral Pulse, Pedal Pulse. negative: Calf Tenderness - Integumentary Skin: Normal, Warm, Dry Lymphatics: Normal (no adenopathy). negative: Adenopathy - Neurologic Memory Impaired: Short-term, Long-term Motor Function: Normal Cranial Nerve: Normal Cerebellar: Normal Mood Description: Anxious Thought: Flight of Ideas Perception: Normal - Other Exam Other Exam Findings: Allergies codeine [Codeine] Allergy (Severe, Verified 08/10/16 10:27) Headache SEVERE HEADACHE Penicillins Allergy (Intermediate, Verified 08/10/16 10:27) Rash-Generalized Discharge Home Medication List Aspirin 81 mg PO DAILY 02/23/16 [History Confirmed 08/10/16] Atenolol [Tenormin] 50 mg PO BID 02/23/16 [History Confirmed 08/10/16] Atorvastatin Calcium [Lipitor] 20 mg PO HS 02/23/16 [History Confirmed 08/10/16] CYANOCOBALAMIN (Vitamin B-12) [Vitamin B-12 (cyanocobalamin)] 1,000 mcg IM .MONTHLY 02/23/16 [History Confirmed 08/10/16] Clopidogrel Bisulfate [Plavix] 75 mg PO DAILY 02/23/16 [History Confirmed ] Folic Acid 1 mg PO DAILY 02/23/16 [History Confirmed 08/10/16] Furosemide [Lasix] 40 mg PO BID 02/23/16 [History Confirmed 08/10/16] Isosorbide Mononitrate [Isosorbide Mononitrate ER] 60 mg PO DAILY 02/23/16 [ History Confirmed 08/10/16] Nitroglycerin [Nitroquick] 0.4 mg SL . DIRECTED PRN 02/23/16 [History Confirmed 08/10/16] Quinapril HCl 40 mg PO BID 02/23/16 [History Confirmed 08/10/16] Gabapentin [Neurontin] 100 mg PO QHS 06/24/16 [History Confirmed 08/10/16] Lactobacillus Combo No.11 [Probiotic] 1 cap PO DAILY 06/24/16 [History Confirmed 08/10/16] Pantoprazole Sodium [Protonix] 20 mg PO DAILY 06/24/16 [History Confirmed ] Psyllium Husk [Metamucil] 0.52 gm PO BID 06/24/16 [History Confirmed 08/10/16] Quetiapine Fumarate [Seroquel] 25 mg PO HS 06/24/16 [History Confirmed 08/10/16] Calcium Carbonate + Vitamin D [Oscal with Vitamin D] 500 mg PO BID #60 tab 08/13 [Rx] Ceftriaxone [Rocephin] 1 gm IM Q24H #3 vial 08/13/16 [Rx] Probiotic Blend [Monika Q] 1 each PO DAILY #60 tab 08/13/16 [Rx] New Discharge Medications (Rx) Calcium Carbonate + Vitamin D [Oscal with Vitamin D] 500 mg PO BID #60 tab 08/13 [Rx] Ceftriaxone [Rocephin] 1 gm IM Q24H #3 vial 08/13/16 [Rx] Probiotic Blend [Monika Q] 1 each PO DAILY #60 tab 08/13/16 [Rx] Home Medications Aspirin 81 mg PO DAILY 02/23/16 Atenolol [Tenormin] 50 mg PO BID 02/23/16 Atorvastatin Calcium [Lipitor] 20 mg PO HS 02/23/16 CYANOCOBALAMIN (Vitamin B-12) [Vitamin B-12 (cyanocobalamin)] 1,000 mcg IM .MONTHLY 02/23/16 Clopidogrel Bisulfate [Plavix] 75 mg PO DAILY 02/23/16 Folic Acid 1 mg PO DAILY 02/23/16 Furosemide [Lasix] 40 mg PO BID 02/23/16 Isosorbide Mononitrate [Isosorbide Mononitrate ER] 60 mg PO DAILY 02/23/16 Nitroglycerin [Nitroquick] 0.4 mg SL . DIRECTED PRN 02/23/16 Quinapril HCl 40 mg PO BID 02/23/16 Gabapentin [Neurontin] 100 mg PO QHS 06/24/16 Lactobacillus Combo No.11 [Probiotic] 1 cap PO DAILY 06/24/16 Pantoprazole Sodium [Protonix] 20 mg PO DAILY 06/24/16 Psyllium Husk [Metamucil] 0.52 gm PO BID 06/24/16 Quetiapine Fumarate [Seroquel] 25 mg PO HS 06/24/16 Calcium Carbonate + Vitamin D [Oscal with Vitamin D] 500 mg PO BID #60 tab 08/13 Ceftriaxone [Rocephin] 1 gm IM Q24H #3 vial 08/13/16 Probiotic Blend [Monika Q] 1 each PO DAILY #60 tab 08/13/16 08/12/16 04:55 08/12/16 04:55 Microbiology 08/10/16 09:05 Urine - In/Out Catheter Urine Culture - Final Proteus penneri K.pneum. ssp pneumoniae Microbiology 08/10/16 09:05 Urine - In/Out Catheter Urine Culture - Final Proteus penneri K.pneum. ssp pneumoniae Active Problems Altered mental status (Acute) R41.82 Dehydration (Acute) E86.0 IV fluids and monitor. Stasis dermatitis of both legs (Acute) I83.11, I83.12 Supportive care. Likely needs compression stockings UTI (urinary tract infection) (Acute) N39.0 Using IV Rocephin based on previous cultures in June. Adjust therapy pending new culture results Last Vital Signs Temp 98.8 F 08/13/16 04:00 Pulse 55 L 08/13/16 08:46 Resp 18 08/13/16 04:00 BP 178/88 08/13/16 08:46 Pulse Ox 97 08/13/16 07:39 Patient Name: CHERELLE SEN LOC: ED : 1935 AGE: 81 Order Date:08/10/16 Date of Service:09/25 Report # [id number] Ord Physician: Jose R Deutsch DO Exam # [id number] Emergency Physician: Jose R Deutsch DO Exam(s): [id number] CT/CT HEAD W/O CM CLINICAL DATA: 81-year-old female with acute altered mental status. EXAM: CT HEAD WITHOUT CONTRAST TECHNIQUE: Contiguous axial images were obtained from the base of the skull through the vertex without intravenous contrast. COMPARISON: 02/23/2016 and prior exams. FINDINGS: Atrophy, chronic small-vessel white matter ischemic changes and remote right [id number] infarct again noted. No acute intracranial abnormalities are identified, including mass lesion or mass effect, hydrocephalus, extra-axial fluid collection, midline shift, hemorrhage, or acute infarction. The visualized bony calvarium is unremarkable. IMPRESSION: No evidence of acute intracranial abnormality. Atrophy, chronic small-vessel white mentioned ischemic changes remote right cerebral infarct. Electronically Signed By: Angel Jett M.D. On: 08/10/2016 09:13 Electronically Signed By: Angel Jett MD Electronically Signed Date/Time: 916 Patient Name: CHERELLE SEN LOC: ED : 1935 AGE: 81 Order Date:08/10/16 Date of Service:09/25 Report # [id number] Ord Physician: Jose R Deutsch DO Exam # [id number] Emergency Physician: Jose R Deutsch DO Exam(s): [id number] RAD/DG CHEST PORTABLE CLINICAL DATA: 81-year-old female with shortness breath and altered mental status. EXAM: PORTABLE CHEST 1 VIEW COMPARISON: 06/24/2016 and prior exams FINDINGS: Cardiomegaly and CABG changes identified. There is no evidence of focal airspace disease, pulmonary edema, suspicious pulmonary nodule/mass, pleural effusion, or pneumothorax. No acute bony abnormalities are identified. IMPRESSION: Cardiomegaly without evidence of acute cardiopulmonary disease. Electronically Signed By: Angel Jett M.D. On: 08/10/2016 09:08
== END 2016-08-13 15:35 | DRG 689 ==
LOC: ED 07:33 → PCU 11:05 → MPS3 08-12 20:36
PROVIDERS: ADMIT Hospitalist; ATTEND Internal Medicine
DX: N30.00 Acute cystitis without hematuria (principal); G93.41 Metabolic encephalopathy; D51.3 Other dietary vitamin B12 deficiency anemia; E86.0 Dehydration; I25.810 Atherosclerosis of coronary artery bypass graft(s) without angina pectoris; G30.9 Alzheimer's disease, unspecified; F02.80 Dementia in other diseases classified elsewhere, unspecified severity, without behavioral disturbance, psychotic disturbance, mood disturbance, and anxiety; B96.89 Other specified bacterial agents as the cause of diseases classified elsewhere; B96.1 Klebsiella pneumoniae [K. pneumoniae] as the cause of diseases classified elsewhere; E78.00 Pure hypercholesterolemia, unspecified; E78.5 Hyperlipidemia, unspecified; I10 Essential (primary) hypertension; I25.2 Old myocardial infarction; Z95.1 Presence of aortocoronary bypass graft; Z87.440 Personal history of urinary (tract) infections; K21.9 Gastro-esophageal reflux disease without esophagitis; Z86.73 Personal history of transient ischemic attack (TIA), and cerebral infarction without residual deficits; F41.8 Other specified anxiety disorders; Z88.0 Allergy status to penicillin; Z88.5 Allergy status to narcotic agent; Z79.899 Other long term (current) drug therapy; Z79.82 Long term (current) use of aspirin; I83.11 Varicose veins of right lower extremity with inflammation; I83.12 Varicose veins of left lower extremity with inflammation
CPT/HCPCS: 36415; 70450; 71010; 80048; 80053; 80307; 81001; 84484; 85025; 85610; 85730; 87077; 87086; 87186; 93005; 96365; 96372; 97161; 99285; J0696; J1650; J1956; J2060; J3490; J7040; J7060